=== PATIENT | male | born 2000 | race Hispanic/Latino ===

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

== ENCOUNTER 2019-11-12 12:35 | Emergency (ER) | payer BC, SELFPAY ==
--- NOTE | 2019-11-12 14:29 | EDPHYS ---
Physician Documentation [facility] Name: Red Zuluaga III Age: 19 yrs Sex: Male : 2000 Arrival Date: 11/12/2019 Time: 12:37 Bed 6 Private MD: ED Physician Kenny Boyle HPI: 11/11 13:13 This 19 yrs old Male presents to ER via Ambulatory with complaints of kdr Weakness, Sore Throat. 13:15 The patient has been feeling poorly for the last 24-48 hours and has been spitting up kdr small amount of blood. His throat has been burning when he swallows. He generally does not feel well but other than the sore throat, has no focal c/o. Onset: The symptoms/episode began/occurred gradually, yesterday. Severity of symptoms: At their worst the symptoms were mild moderate just prior to arrival, in the emergency department the symptoms are unchanged. The patient has not experienced similar symptoms in the past. The patient has not recently seen a physician. Historical: - Allergies: 12:55 No Known Allergies; ph - Home Meds: 12:55 None [Active]; ph - PMHx: 12:55 None; ph - PSHx: 12:55 None; ph - Immunization history:: Adult Immunizations unknown. - Social history:: Smoking status: Reported history of juuling and/or vaping. ROS: 13:15 Constitutional: Negative for objective fever, chills, and weight loss, Eyes: Negative kdr for injury, pain, redness, and discharge, Neck: Negative for injury, pain, and swelling, Cardiovascular: Negative for chest pain, palpitations, and edema. 13:15 ENT: Positive for sore throat, Negative for drainage from ear(s), ear pain, foreign body sensation, Gum pain hearing loss, pulling at ears, Teeth pain tinnitus, nasal discharge, dental pain, difficulty handling secretions, hoarseness. 13:15 Abdomen/GI: Positive for Spitting up a small amount blood - denies coughing up blood. Exam: 13:15 Constitutional: This is a well developed, well nourished patient who is awake, alert, kdr and in no acute distress. Head/Face: Normocephalic, atraumatic. Eyes: Pupils equal round and reactive to light, extra-ocular motions intact. Lids and lashes normal. Conjunctiva and sclera are non-icteric and not injected. Cornea within normal limits. Periorbital areas with no swelling, redness, or edema. Neck: Trachea midline, no thyromegaly or masses palpated, and no cervical lymphadenopathy. Supple, full range of motion without nuchal rigidity, or vertebral point tenderness. No Meningismus. Chest/axilla: Normal chest wall appearance and motion. Nontender with no deformity. No lesions are appreciated. Cardiovascular: Regular rate and rhythm with a normal S1 and S2. No gallops, murmurs, or rubs. Normal PMI, no JVD. No pulse deficits. Respiratory: Lungs have equal breath sounds bilaterally, clear to auscultation and percussion. No rales, rhonchi or wheezes noted. No increased work of breathing, no retractions or nasal flaring. Abdomen/GI: Soft, non-tender, with normal bowel sounds. No distension or tympany. No guarding or rebound. No evidence of tenderness throughout. Back: No spinal tenderness. No costovertebral tenderness. Full range of motion. Skin: Warm, dry with normal turgor. Normal color with no rashes, no lesions, and no evidence of cellulitis. MS/ Extremity: Pulses equal, no cyanosis. Neurovascular intact. Full, normal range of motion. Neuro: Awake and alert, GCS 15, oriented to person, place, time, and situation. Cranial nerves II-XII grossly intact. Motor strength 5/5 in all extremities. Sensory grossly intact. Cerebellar exam normal. Normal gait. Psych: Awake, alert, with orientation to person, place and time. Behavior, mood, and affect are within normal limits. 13:15 ENT: Mouth: is normal, Oral mucosa: normal, Gums: normal with healthy appearance, Tongue: is normal, abscess, is not appreciated, drooling, is not appreciated, Posterior pharynx: is normal, no acute changes, Airway: normal, Uvula: normal, swelling, is not appreciated, erythema, that is mild, exudate, is not appreciated, peritonsillar mass, is not appreciated, pooling of secretions, is not appreciated. Vital Signs: 12:51 BP 129 / 97; Pulse 72; Resp 18; Temp 98.5; Pulse Ox 99% on R/A; Weight 74.84 kg; Height ph 5 ft. 6 in. (167.64 cm); 14:27 BP 118 / 82; Pulse 70; Resp 16; Pulse Ox 100% on R/A; ph 14:51 Temp 98.2; ph 12:51 Body Mass Index 26.63 (74.84 kg, 167.64 cm) ph MDM: 13:15 Data reviewed: vital signs, nurses notes. Counseling: I had a detailed discussion with [facility] the patient and/or guardian regarding: the historical points, exam findings, and any diagnostic results supporting the discharge/admit diagnosis, lab results, radiology results. 14:29 Patient medically screened. [facility] 11/11 12:56 Order name: COVID-19 [facility] 11/11 12:56 Order name: Strep [facility] 11/11 12:56 Order name: CXR XRAY [facility] 11/11 14:23 Order name: Group A Streptococcus Rapid Sc; Complete Time: 14:27 [facility] 11/11 14:44 Order name: RAD [facility] Administered Medications: No medications were administered Disposition: 11/12/19 14:29 Discharged to Home. Impression: Acute upper respiratory infection, unspecified, Acute pharyngitis. - Condition is Stable. - Discharge Instructions: Pharyngitis, Upper Respiratory Infection, Adult, COVID-19. - Prescriptions for Ibuprofen 800 mg Oral Tablet - take 1 tablet by ORAL route every 12 hours As needed take with food; 20 tablet. - Medication Reconciliation Form, Thank You Letter, Work release form form. - Follow up: Private Physician; When: 2 - 3 days; Reason: If symptoms return, Further diagnostic work-up, Recheck today's complaints, Continuance of care, Re-evaluation by your physician. - Problem is new. - Symptoms have improved. Signatures: Dispatcher [employer] [facility] Kenny Boyle MD MD [facility] Laly Huynh RN RN ph Corrections: (The following items were deleted from the chart) 14:51 14:29 11/12/2019 14:29 Discharged to Home. Impression: Acute upper respiratory ph infection, unspecified; Acute pharyngitis. Condition is Stable. Forms are Medication Reconciliation Form, Thank You Letter, Antibiotic Education, Prescription Opioid Use. Follow up: Private Physician; When: 2 - 3 days; Reason: If symptoms return, Further diagnostic work-up, Recheck today's complaints, Continuance of care, Re-evaluation by your physician. Problem is new. Symptoms have improved. kdr
--- NOTE | 2019-11-12 14:29 | ER ---
Nurse's Notes [facility] Name: Red Zuluaga III Age: 19 yrs Sex: Male : 2000 Arrival Date: 11/12/2019 Time: 12:37 Bed 6 Private MD: Diagnosis: Acute upper respiratory infection, unspecified;Acute pharyngitis Presentation: 11/11 12:51 Chief complaint: Patient states: Sore throat, cough, fatigue, chills and subjective ph fever x 2-3 days, denies SOB, N/V/D. Coronavirus screen: chills, cough unrelated to allergies, fatigue, sore throat, Client presents with at least one sign or symptom that may indicate coronavirus-19. Standard/surgical mask placed on the client. Provider contacted for isolation considerations. Ebola Screen: No symptoms or risks identified at this time. Initial Sepsis Screen: Does the patient meet any 2 criteria? No. Patient's initial sepsis screen is negative. Does the patient have a suspected source of infection? No. Patient's initial sepsis screen is negative. Risk Assessment: Do you want to hurt yourself or someone else? Patient reports no desire to harm self or others. Onset of symptoms was November 12, 2019. 12:51 Method Of Arrival: Ambulatory ph 12:51 Acuity: JORI 4 ph Historical: - Allergies: 12:55 No Known Allergies; ph - Home Meds: 12:55 None [Active]; ph - PMHx: 12:55 None; ph - PSHx: 12:55 None; ph - Immunization history:: Adult Immunizations unknown. - Social history:: Smoking status: Reported history of juuling and/or vaping. Screenin:57 Abuse screen: Denies threats or abuse. Denies injuries from another. Nutritional ph screening: No deficits noted. Tuberculosis screening: No symptoms or risk factors identified. Fall Risk None identified. Assessment: 12:55 General: Appears in no apparent distress. comfortable, well groomed, Behavior is calm, ph cooperative, appropriate for age, Reports chills for 2-3 days. Pain: Complains of pain in when swallowing. Neuro: Level of Consciousness is awake, alert, obeys commands, Oriented to person, place, time, situation. Cardiovascular: Reports fatigue, Capillary refill < 3 seconds in bilateral fingers Patient's skin is warm and dry. Respiratory: Reports cough that is Airway is patent Respiratory effort is even, unlabored, Respiratory pattern is regular, symmetrical, Denies shortness of breath at rest, on exertion. GI: No signs and/or symptoms were reported involving the gastrointestinal system. EENT: Reports nasal congestion pain when swallowing. Derm: Skin is intact, is healthy with good turgor, Skin is pink, warm \T\ dry. Musculoskeletal: Circulation, motion, and sensation intact. Range of motion: intact in all extremities. 14:26 Reassessment: Patient appears in no apparent distress at this time. Patient and/or ph family updated on plan of care and expected duration. Pain level reassessed. Patient is alert, oriented x 3, equal unlabored respirations, skin warm/dry/pink. Pt resting quietly, awaiting results of CXR. 14:51 Reassessment: Patient appears in no apparent distress at this time. Patient and/or ph family updated on plan of care and expected duration. Pain level reassessed. Patient is alert, oriented x 3, equal unlabored respirations, skin warm/dry/pink. Vital Signs: 12:51 BP 129 / 97; Pulse 72; Resp 18; Temp 98.5; Pulse Ox 99% on R/A; Weight 74.84 kg; Height ph 5 ft. 6 in. (167.64 cm); 14:27 BP 118 / 82; Pulse 70; Resp 16; Pulse Ox 100% on R/A; ph 14:51 Temp 98.2; ph 12:51 Body Mass Index 26.63 (74.84 kg, 167.64 cm) ph ED Course: 12:37 Patient arrived in ED. ds1 12:47 Kenny Boyle MD is Attending Physician. kdr 12:51 Laly Huynh, MARGOTH is Primary Nurse. ph 12:55 Triage completed. ph 12:55 Arm band placed on Patient placed in an exam room. ph 12:57 Patient has correct armband on for positive identification. Bed in low position. Call ph light in reach. Side rails up X 1. 14:51 No provider procedures requiring assistance completed. Patient did not have IV access ph during this emergency room visit. Administered Medications: No medications were administered Outcome: 14:29 Discharge ordered by . kdr 14:51 Discharged to home ambulatory, with family. ph 14:51 Condition: good 14:51 Discharge instructions given to patient, family, Instructed on discharge instructions, follow up and referral plans. Demonstrated understanding of instructions, follow-up care. 14:51 Patient left the ED. ph Signatures: Kenny Boyle MD MD kdr Sanford, Demi ds1 Laly Huynh RN RN ph
--- NOTE | 2019-11-12 14:44 | RAD REPORT ---
EXAM DESCRIPTION: RAD - Chest Single View - 11/12/2019 1:13 pm CLINICAL HISTORY: Cough;Congestion COMPARISON: September 2007 TECHNIQUE: AP portable chest image was obtained 11/12/2019 1:13 pm . FINDINGS: Lungs are clear. Heart and vasculature are normal. No measurable pleural effusion and no p neumothorax. No acute bony abnormality seen. No acute aortic findings suspected. IMPRESSION: No acute cardiopulmonary process. No significant change from comparison.
[2019-11-12 14:58] VITALS: BP 118/82; O2SAT 100
[2019-11-12 14:59] VITALS: TEMP 98.2
== END 2019-11-12 14:51 | disposition home or self-care (01) ==
LOC: ER 12:35
DX: J06.9 Acute upper respiratory infection, unspecified (principal); Z20.828 Contact with and (suspected) exposure to other viral communicable diseases
CPT/HCPCS: 87070; 87081; 71045; 99281; U0002

== ENCOUNTER 2020-05-26 13:14 | Emergency (ER) | payer BC ==
--- NOTE | 2020-05-26 14:41 | RAD REPORT ---
EXAM DESCRIPTION: RAD - Ankle Left 3 View - 05/26/2020 2:04 pm CLINICAL HISTORY: PAIN COMPARISON: No comparisons FINDINGS: No fracture or dislocation is seen.
--- NOTE | 2020-05-26 14:41 | RAD REPORT ---
EXAM DESCRIPTION: RAD - Foot Left 3 View - 05/26/2020 2:04 pm CLINICAL HISTORY: PAIN COMPARISON: No comparisons FINDINGS: No fracture or dislocation is evident.
--- NOTE | 2020-05-26 14:45 | ER ---
Nurse's Notes [facility] Name: Red Zuluaga III Age: 20 yrs Sex: Male : 2000 Arrival Date: 05/26/2020 Time: 13:19 Bed 4 Private MD: Diagnosis: Contusion of left ankle Presentation: 05/26 13:29 Chief complaint: Patient states: left ankle/leg swelling and pain x 1 week. Reports sv having a refrigerator accidently fall on his left ankle area. Coronavirus screen: Client denies travel out of the [place] in the last 14 days. At this time, the client does not indicate any symptoms associated with coronavirus-19. Ebola Screen: No symptoms or risks identified at this time. Risk Assessment: Do you want to hurt yourself or someone else? Patient reports no desire to harm self or others. Onset of symptoms was May 2020. 13:29 Method Of Arrival: Wheelchair sv 13:29 Acuity: JORI 4 sv 13:34 Initial Sepsis Screen: Does the patient meet any 2 criteria? No. Patient's initial hb sepsis screen is negative. Does the patient have a suspected source of infection? No. Patient's initial sepsis screen is negative. Historical: - Allergies: 13:31 No Known Allergies; sv - PMHx: 13:31 None; sv - PSHx: 13:31 None; sv - Immunization history:: Client reports receiving the 1st dose of the Covid vaccine, J\T\J. - Social history:: Smoking status: Patient denies any tobacco usage or history of. - Family history:: not pertinent. - Hospitalizations: : No recent hospitalization is reported. Screenin:33 Abuse screen: Denies threats or abuse. Denies injuries from another. Nutritional ss screening: No deficits noted. Tuberculosis screening: Never had TB. Fall Risk None identified. Assessment: 13:30 General: Appears in no apparent distress. Behavior is calm, cooperative. Pain: Pain hb currently is 8 out of 10 on a pain scale. Neuro: Level of Consciousness is awake, alert, obeys commands, Oriented to person, place, time, situation. Cardiovascular: Patient's skin is warm and dry. Respiratory: Respiratory effort is even, unlabored, Respiratory pattern is regular, symmetrical. GI: No signs and/or symptoms were reported involving the gastrointestinal system. : No signs and/or symptoms were reported regarding the genitourinary system. EENT: No signs and/or symptoms were reported regarding the EENT system. Derm: Skin is pink, warm \T\ dry. Musculoskeletal: Reports left ankle pain. Vital Signs: 13:29 Temp 97.7; Weight 74.39 kg; Height 5 ft. 6 in. (167.64 cm); Pain 8/10; sv 13:38 BP 131 / 94; Pulse 81; Resp 14; Temp 98.6(O); Pulse Ox 98% on R/A; Pain 6/10; ss 13:29 Body Mass Index 26.47 (74.39 kg, 167.64 cm) sv ED Course: 13:19 Patient arrived in ED. mr 13:24 Matt Barajas MD is Attending Physician. rn 13:30 Triage completed. sv 13:31 Arm band placed on. sv 13:33 Abi Cruz RN is Primary Nurse. ss 13:33 Patient has correct armband on for positive identification. Bed in low position. Call ss light in reach. 14:04 XRAY Ankle LEFT 3 view In Process Unspecified. EDMS 14:04 XRAY Foot LEFT 3 View In Process Unspecified. EDMS 15:19 No provider procedures requiring assistance completed. Patient did not have IV access ss during this emergency room visit. Administered Medications: No medications were administered Outcome: 14:44 Discharge ordered by . rn 15:19 Discharged to home ambulatory. ss 15:19 Condition: good 15:19 Discharge instructions given to patient, Instructed on discharge instructions, follow up and referral plans. Demonstrated understanding of instructions, follow-up care. 15:19 Patient left the ED. ss Signatures: Dispatcher [employer] EDMS Dunia Wheeler RN MARGOTH htorpe Kerri Oneal mr Matt Barajas MD MD rn Smirch, Shelby, RN RN ss Baxter, Heather, RN RN
--- NOTE | 2020-05-26 14:45 | EDPHYS ---
Physician Documentation [facility] Name: Red Zuluaga III Age: 20 yrs Sex: Male : 2000 Arrival Date: 05/26/2020 Time: 13:19 Bed 4 Private MD: ED Physician Matt Barajas HPI: 05/26 13:29 This 20 yrs old Male presents to ER via Unassigned with complaints of Leg Pain.rn 13:29 The patient presents with decreased range of motion, an injury, pain. The complaints rn affect the left lateral ankle and anterior aspect of left ankle. Context: resulted from a direct blow, the patient can partially bear weight, the patient is able to ambulate. Onset: The symptoms/episode began/occurred 1 week(s) ago. Modifying factors: The symptoms are alleviated by nothing. the symptoms are aggravated by movement, weight bearing. Associated signs and symptoms: Pertinent positives: swelling, Pertinent negatives fever, numbness, weakness. Severity of symptoms: At their worst the symptoms were moderate, in the emergency department the symptoms have improved. The patient has not experienced similar symptoms in the past. The patient has not recently seen a physician. Reports fridge fell on his left ankle 1 week ago, ambulatory with limp, no other injuries. . Historical: - Allergies: 13:31 No Known Allergies; sv - PMHx: 13:31 None; sv - PSHx: 13:31 None; sv - Immunization history:: Client reports receiving the 1st dose of the Covid vaccine, J\T\J. - Social history:: Smoking status: Patient denies any tobacco usage or history of. - Family history:: not pertinent. - Hospitalizations: : No recent hospitalization is reported. ROS: 13:29 Constitutional: Negative for fever, chills, and weight loss, MS/Extremity: + injury and rn pain to left ankle Neuro: Negative for weakness, numbness, tingling Exam: 13:29 Constitutional: This is a well developed, well nourished patient who is awake, alert, rn and in no acute distress. MS/ Extremity: Pulses equal, no cyanosis. Neurovascular intact. + tenderness left lateral malleolus, + healing abrasions over left ankle/pre-tibial region, no erythema or warmth. + mild swelling and ecchymosis around left lateral malleolus. Vital Signs: 13:29 Temp 97.7; Weight 74.39 kg; Height 5 ft. 6 in. (167.64 cm); Pain 8/10; sv 13:38 BP 131 / 94; Pulse 81; Resp 14; Temp 98.6(O); Pulse Ox 98% on R/A; Pain 6/10; ss 13:29 Body Mass Index 26.47 (74.39 kg, 167.64 cm) sv MDM: 13:24 Patient medically screened. rn 14:43 Differential diagnosis: closed fracture, contusion. Data reviewed: vital signs, nurses rn notes, radiologic studies, plain films, and as a result, I will discharge patient. Counseling: I had a detailed discussion with the patient and/or guardian regarding: the historical points, exam findings, and any diagnostic results supporting the discharge/admit diagnosis, radiology results, the need for outpatient follow up, to return to the emergency department if symptoms worsen or persist or if there are any questions or concerns that arise at home. Special discussion: I discussed with the patient/guardian in detail that at this point there is no indication for admission to the hospital. It is understood, however, that if the symptoms persist or worsen the patient needs to return immediately for re-evaluation. 05/26 13:29 Order name: XRAY Ankle LEFT 3 view; Complete Time: 14:43 rn 05/26 13:29 Order name: XRAY Foot LEFT 3 View; Complete Time: 14:43 rn Administered Medications: No medications were administered Disposition: 05/26/20 14:44 Discharged to Home. Impression: Contusion of left ankle. - Condition is Stable. - Discharge Instructions: Ankle Sprain. - Work release form, Medication Reconciliation Form, Thank You Letter, Antibiotic Education, Prescription Opioid Use form. - Follow up: Private Physician; When: As needed; Reason: Recheck today's complaints, Re-evaluation by your physician. - Problem is new. - Symptoms have improved. Signatures: Dispatcher [employer] Dunia Gonzales RN Matt Zimmerman MD MD rn Smirch, Shelby, RN RN ss Corrections: (The following items were deleted from the chart) 15:19 14:44 05/26/2020 14:44 Discharged to Home. Impression: Contusion of left ankle. ss Condition is Stable. Forms are Medication Reconciliation Form, Thank You Letter, Antibiotic Education, Prescription Opioid Use. Follow up: Private Physician; When: As needed; Reason: Recheck today's complaints, Re-evaluation by your physician. Problem is new. Symptoms have improved. rn
== END 2020-05-26 15:19 | disposition home or self-care (01) ==
LOC: ER 13:14
DX: S90.02XA Contusion of left ankle, initial encounter (principal); W22.8XXA Striking against or struck by other objects, initial encounter; Y93.89 Activity, other specified; Y92.9 Unspecified place or not applicable
CPT/HCPCS: 99283

== ENCOUNTER 2020-06-05 18:13 | Emergency (ER) | payer SELFPAY ==
--- NOTE | 2020-06-05 20:29 | ER ---
Nurse's Notes [facility] Name: Red Zuluaga III Age: 20 yrs Sex: Male : 2000 Arrival Date: 06/05/2020 Time: 18:24 Bed Waiting Private MD: Diagnosis: Presentation: 06/05 18:27 Chief complaint: Patient states: N/V , fever, chills, body aches for 1 day. Coronavirus ll1 screen: Client denies travel out of the [place] in the last 14 days. chills, fatigue, headache, muscle pain, nausea, shaking with chills, vomiting. Client presents with at least one sign or symptom that may indicate coronavirus-19. Standard/surgical mask placed on the client. Ebola Screen: Patient denies travel to an Ebola-affected area in the 21 days before illness onset. Initial Sepsis Screen: Does the patient meet any 2 criteria? HR > 90 bpm. No. Patient's initial sepsis screen is negative. Does the patient have a suspected source of infection? Yes: Other: N/V. Risk Assessment: Do you want to hurt yourself or someone else? Patient reports no desire to harm self or others. Onset of symptoms was June 05, 2020. 18:27 Method Of Arrival: Ambulatory ll1 18:27 Acuity: JORI 3 ll1 Historical: - Allergies: 18:28 No Known Allergies; ll1 - PMHx: 18:28 None; ll1 - Immunization history:: Flu vaccine is not up to date. - Social history:: Smoking status: Patient denies any tobacco usage or history of. Assessment: 20:00 Reassessment: called no answer. ca1 Vital Signs: 18:27 BP 130 / 82; Pulse 100; Resp 18; Temp 99.9; Pulse Ox 98% ; Weight 66.22 kg; Height 5 ll1 ft. 6 in. (167.64 cm); Pain 8/10; 18:27 Body Mass Index 23.56 (66.22 kg, 167.64 cm) ll1 ED Course: 18:24 Patient arrived in ED. as 18:28 Triage completed. ll1 18:28 Arm band placed on. ll1 20:27 Patient's name was called from ER lobby. No response. Unable to locate patient. Will ca1 disposition as left without being seen by a provider. Administered Medications: No medications were administered Outcome: 20:28 Patient left the ED. ca1 Signatures: Reyna Hensley Cheryl RN RN ca1 Matt Garcia RN RN ll1
[2020-06-05 20:34] VITALS: BP 130/82; TEMP 99.9; O2SAT 98
== END 2020-06-05 20:28 | disposition left against medical advice (07) ==
LOC: ER 18:13
DX: Z02.9 Encounter for administrative examinations, unspecified (principal)
CPT/HCPCS: 99281

== ENCOUNTER 2021-02-16 20:53 | Emergency (ER) | payer BC ==
[2021-02-16 23:54] LABS: SARS-COV-2 RT PCR POSITIVE (NEGATIVE)
--- NOTE | 2021-02-17 00:34 | ER ---
Nurse's Notes [facility] Name: Red Zuluaga III Age: 21 yrs Sex: Male : 2000 Arrival Date: 02/16/2021 Time: 20:58 Bed 9 Private MD: Diagnosis: SARS-associated coronavirus as the cause of diseases classified elsewhere Presentation: 02/17 00:10 Chief complaint: Patient states: he has had Covid like symptoms for about 10 days and bb he is getting tired of them. Coronavirus screen: diarrhea, Client presents with at least one sign or symptom that may indicate coronavirus-19. Standard/surgical mask placed on the client. Ebola Screen: No symptoms or risks identified at this time. Initial Sepsis Screen: Does the patient meet any 2 criteria? No. Patient's initial sepsis screen is negative. Does the patient have a suspected source of infection? No. Patient's initial sepsis screen is negative. Risk Assessment: Do you want to hurt yourself or someone else? Patient reports no desire to harm self or others. Onset of symptoms was February 07, 2021. 00:10 Method Of Arrival: Ambulatory bb 00:10 Acuity: JORI 4 bb Triage Assessment: 00:10 General: Appears in no apparent distress. Behavior is calm, cooperative. Pain: Denies bb pain. Neuro: Level of Consciousness is awake, alert, obeys commands, Oriented to person, place, time, situation. Cardiovascular: Capillary refill < 3 seconds Patient's skin is warm and dry. Respiratory: Respiratory effort is even, unlabored, Respiratory pattern is regular. GI: No signs and/or symptoms were reported involving the gastrointestinal system. Derm: Skin is pink, warm \\T\\ dry. Musculoskeletal: Circulation, motion, and sensation intact. Historical: - Allergies: 01:40 No Known Allergies; bb - Home Meds: 01:40 None [Active]; bb - PMHx: 01:40 None; bb - Immunization history:: Client reports having NOT received the Covid vaccine. - Social history:: Smoking status: unknown. Screenin: Abuse screen: Denies threats or abuse. Nutritional screening: No deficits noted. bb Tuberculosis screening: No symptoms or risk factors identified. Fall Risk None identified. Assessment: :41 Reassessment: No changes from previously documented assessment. Patient is alert, bb oriented x 3, equal unlabored respirations, skin warm/dry/pink. pt verbalized understanding of and agrees to plan of care discharge instructions given pt ambulated with steady gait to exit accompanied by friend. Vital Signs: 02/16 22:41 BP 132 / 96; Pulse 73; Resp 16; Temp 98.4; Pulse Ox 100% ; lt3 02/17 00:42 BP 133 / 87; Pulse 67; Resp 16; Temp 98.0(O); Pulse Ox 98% ; lt3 ED Course: 02/16 20:58 Patient arrived in ED. kc5 22:44 COVID swab sent to lab. Flu and/or RSV swab sent to lab. Strep swab sent to lab. lt3 22:45 Strep Sent. lt3 22:45 COVID-19/FLU A+B/RSV (Document "Date of Onset" if Symptomatic) Sent. lt3 02/17 00:10 Arm band placed on Patient placed in an exam room, on a stretcher, on pulse oximetry. bb Family accompanied patient. 00:23 Avtar Ford PA is PHCP. jrSlade 00:23 Bandar Severino MD is Attending Physician. jr8 01:38 Shanthi Thornton, MARGOTH is Primary Nurse. bb 01:39 Triage completed. bb 01:41 No provider procedures requiring assistance completed. Patient did not have IV access bb during this emergency room visit. 01:41 Patient has correct armband on for positive identification. bb Administered Medications: No medications were administered Outcome: 00:34 Discharge ordered by MD. jr8 01:41 Discharged to home ambulatory, with family. bb 01:41 Condition: stable 01:41 Discharge instructions given to patient, Instructed on discharge instructions, follow up and referral plans. Demonstrated understanding of instructions, follow-up care. 01:43 Patient left the ED. bb Signatures: Shanthi Thornton RN RN Avtar La PA PA jr8 Samanta Franco kc5 Aleja Ruiz lt3 Corrections: (The following items were deleted from the chart) 01:40 01:40 PSHx: None; bb toya
--- NOTE | 2021-02-17 00:35 | EDPHYS ---
Physician Documentation [facility] Name: Red Zuluaga III Age: 21 yrs Sex: Male : 2000 Arrival Date: 02/16/2021 Time: 20:58 Bed 9 Private MD: ED Physician Bandar Severino HPI: 02/17 00:32 This 21 yrs old Male presents to ER via Unassigned with complaints of jr8 Headache, Pain All Over, Nausea. 00:32 This is a 21-year-old male patient who presented to the emergency room with complaints jr8 of continued headache, body aches, nausea, and fatigue for the past week and half. Was unable to get a test for Covid at any of the local pharmacies. Came to the emergency room tonight for formal testing as he is not significantly improved over the last week and a half.. Historical: - Allergies: 01:40 No Known Allergies; bb - Home Meds: 01:40 None [Active]; bb - PMHx: 01:40 None; bb - Immunization history:: Client reports having NOT received the Covid vaccine. - Social history:: Smoking status: unknown. ROS: 00:32 Eyes: Negative for injury, pain, redness, and discharge, ENT: Negative for injury, jr8 pain, and discharge, Neck: Negative for injury, pain, and swelling, Cardiovascular: Negative for chest pain, palpitations, and edema, Respiratory: Negative for shortness of breath, cough, wheezing, and pleuritic chest pain, Back: Negative for injury and pain, MS/Extremity: Negative for injury and deformity, Skin: Negative for injury, rash, and discoloration. 00:32 Constitutional: Positive for body aches, fatigue, malaise. 00:32 Abdomen/GI: Positive for nausea, Negative for abdominal pain, vomiting, diarrhea. 00:32 Neuro: Positive for headache. Exam: 00:32 Constitutional: This is a well developed, well nourished patient who is awake, alert, jr8 and in no acute distress. Eyes: Pupils equal round and reactive to light, extra-ocular motions intact. Lids and lashes normal. Conjunctiva and sclera are non-icteric and not injected. Cornea within normal limits. Periorbital areas with no swelling, redness, or edema. ENT: Nares patent. No nasal discharge, no septal abnormalities noted. Tympanic membranes are normal and external auditory canals are clear. Oropharynx with no redness, swelling, or masses, exudates, or evidence of obstruction, uvula midline. Mucous membranes moist. Neck: Trachea midline, no thyromegaly or masses palpated, and no cervical lymphadenopathy. Supple, full range of motion without nuchal rigidity, or vertebral point tenderness. No Meningismus. Cardiovascular: Regular rate and rhythm with a normal S1 and S2. No gallops, murmurs, or rubs. Normal PMI, no JVD. No pulse deficits. Respiratory: Lungs have equal breath sounds bilaterally, clear to auscultation and percussion. No rales, rhonchi or wheezes noted. No increased work of breathing, no retractions or nasal flaring. Abdomen/GI: Soft, non-tender, with normal bowel sounds. No distension or tympany. No guarding or rebound. No evidence of tenderness throughout. Back: No spinal tenderness. No costovertebral tenderness. Full range of motion. Skin: Warm, dry with normal turgor. Normal color with no rashes, no lesions, and no evidence of cellulitis. MS/ Extremity: Pulses equal, no cyanosis. Neurovascular intact. Full, normal range of motion. Neuro: Awake and alert, GCS 15, oriented to person, place, time, and situation. Cranial nerves II-XII grossly intact. Motor strength 5/5 in all extremities. Sensory grossly intact. Vital Signs: 02/16 22:41 BP 132 / 96; Pulse 73; Resp 16; Temp 98.4; Pulse Ox 100% ; lt3 02/17 00:42 BP 133 / 87; Pulse 67; Resp 16; Temp 98.0(O); Pulse Ox 98% ; lt3 MDM: 00:23 Patient medically screened. jr8 00:32 Data reviewed: vital signs, nurses notes, lab test result(s), and as a result, I will jr discharge patient. Data interpreted: Pulse oximetry: on room air is 100 %. Interpretation: normal. Counseling: I had a detailed discussion with the patient and/or guardian regarding: the historical points, exam findings, and any diagnostic results supporting the discharge/admit diagnosis, lab results, the need for outpatient follow up, a family practitioner, to return to the emergency department if symptoms worsen or persist or if there are any questions or concerns that arise at home. 02/16 22:37 Order name: COVID-19/FLU A+B/RSV (Document "Date of Onset" if Symptomatic); Complete jr8 Time: 00:23 02/16 22:37 Order name: Strep; Complete Time: 00:23 jr8 02/16 23:13 Order name: Throat Culture EDMS Administered Medications: No medications were administered Disposition: 04:05 Co-signature as Attending Physician, Bandar Severino MD. 7 Disposition Summary: 02/17/21 00:34 Discharge Ordered Location: Home jr8 Problem: new jr8 Symptoms: are unchanged jr8 Condition: Stable jr8 Diagnosis - SARS-associated coronavirus as the cause of diseases classified elsewhere jr8 Followup: jr8 - With: Private Physician - When: 1 week - Reason: Recheck today's complaints, Continuance of care, Re-evaluation by your physician Discharge Instructions: - Discharge Summary Sheet jr8 - COVID-19 jr8 - 10 Things You Can Do to Manage Your COVID-19 Symptoms at Home - [facility] Forms: - Medication Reconciliation Form jr8 - Thank You Letter jr8 - Work release form jr8 - Antibiotic Education jr8 - Prescription Opioid Use jr8 Signatures: Dispatcher [employer] EDMS Shanthi Thornton RN RN bb Avtar Ford PA PA 8 Bandar Severino MD MD mh7 Corrections: (The following items were deleted from the chart) 01:40 01:40 PSHx: None; toya pittman
[2021-02-17 01:50] VITALS: BP 133/87; TEMP 98; O2SAT 98
== END 2021-02-17 01:43 | disposition home or self-care (01) ==
LOC: ER 20:53
DX: U07.1 COVID-19 (principal)
CPT/HCPCS: 87070; 87081; 0241U; 99283

== ENCOUNTER 2022-01-05 20:12 | Emergency (ER) | payer BC ==
--- OUTSIDE RECORDS SUMMARY | 2022-01-05 20:15 | XMS REPORT | Continuity of Care Document ---
:2000 Author Organization [facility] t Address [address] [place] [address] Care Team Providers Name Role Phone Unavailable Unavailable Unavailable Problems This patient has no known problems. Allergies, Adverse Reactions, Alerts This patient has no known allergies or adverse reactions. Medications This patient has no known medications. Procedures This patient has no known procedures. Results Test Description Test Time Test Comments Results Result Comments Source SARS-CoV-2 (COVID-19), RT-PCR/TMA 2021-02-25 09:36:57 Test Item Value Reference Range Interpretation Comme nts SARS-CoV-2 INTERPRETATION NEGATIVE SEE NOTE S ARS-CoV-2 RNA NOT (test code = 43928) DETECTED Negative results do not preclude SARS-C oV-2 infection and should notb e used as the sole basis for patient management deci sions. Negativeresults must be combined with clinical o bservations, patient history ,and epidemiological information. Optimum specime n types and timingfor peak viral levels during infectio ns caused by SARS-CoV-2 have notbeen determined. Col lection of multiple specim ens or types ofspecimens may be necessary to detect virus. I mproper specimencollect ion and handling, sequence variab ility under primers/probes, or organism present below t he limit of detection may l ead to falsenegative r esults. Positive and negative pr edictive values oftesting are h ighly dependent on prevalence. False negative testresults are more likely when prevalence is h igh. SOURCE (test code = 44010) NOT SPECIFIED Note: Methodology is Ilana Reagan Real-Time RT-PCR. The expected result or reference range is NEGATI VE (Not Detected). For more information regarding COVID -19 testing to include clinica linformation, methodology det ail, intended use, FDA author ization andrecommended fact sheets for patients or hea lthcare providers, see [facility] Announcement: S ARS-CoV-2 (COVID-19) by Lisa HUNT at URL below (note,fact shee ts are provided by method given in report:https:// www.[employer]c [email or web address] t-communications/ Alternatively, see downloadable PDF fact sheet at:https://www. [employer]COVID -19-RT-PCR UNLE SS OTHERWISE INDICATED, ALL TESTING PERFORMED ATCLINICAL PATH [facility]. [address] [place] [address] 4 [employer] STRIPPER: Javier ROJAS [id number] [employer]ATION N O. [id number]
[2022-01-05] MEDS ORDERED: DIPHENHYDRAMINE 25 MG TAB/CAP ONE (20:48)
[2022-01-05] MEDS ORDERED: predniSONE 20 MG TAB ONE (20:49)
[2022-01-05] MEDS ORDERED: FAMOTIDINE 20 MG TAB ONE (20:49)
--- NOTE | 2022-01-05 21:43 | EDPHYS ---
Physician Documentation [facility] Name: Red Zuluaga III Age: 21 yrs Sex: Male : 2000 Arrival Date: 01/05/2022 Time: 20:15 Bed 8 Private MD: ED Physician Arias Mora HPI: 01/05 21:37 This 21 yrs old Male presents to ER via Ambulatory with complaints of Rash. [facility] 21:37 The patient's rash thought to be caused by Contact allergy. The rash is located on the [facility] chest, abdomen, right arm and left arm. The rash can be described as erythematous, macular, patchy, raised. Onset: The symptoms/episode began/occurred 3 day(s) ago. Associated signs and symptoms: Pertinent positives: burning sensation, itching. Severity of symptoms: At their worst the symptoms were mild in the emergency department the symptoms are unchanged. Treatment given at home: OTC lotion/cream. The patient has not experienced similar symptoms in the past. Historical: - Allergies: 20:36 No Known Allergies; jh5 - PMHx: 20:36 None; [facility] - Immunization history:: Adult Immunizations up to date. - Social history:: Smoking status: Patient reports the use of cigarette tobacco products, smokes one pack cigarettes per day. - Family history:: not pertinent. ROS: 21:37 Constitutional: Negative for fever, chills, and weight loss, Eyes: Negative for injury, niraj pain, redness, and discharge, ENT: Negative for injury, pain, and discharge, Neck: Negative for injury, pain, and swelling, Cardiovascular: Negative for chest pain, palpitations, and edema, Respiratory: Negative for shortness of breath, cough, wheezing, and pleuritic chest pain, Back: Negative for injury and pain, : Negative for injury, bleeding, discharge, and swelling, MS/Extremity: Negative for injury and deformity, Neuro: Negative for headache, weakness, numbness, tingling, and seizure, Psych: Negative for depression, anxiety, suicide ideation, homicidal ideation, and hallucinations, Allergy/Immunology: Negative for hives, rash, and allergies, Endocrine: Negative for neck swelling, polydipsia, polyuria, polyphagia, and marked weight changes, Hematologic/Lymphatic: Negative for swollen nodes, abnormal bleeding, and unusual bruising. 21:37 Abdomen/GI: Negative for abdominal pain, nausea, vomiting, diarrhea, and constipation. 21:37 Abdomen/GI: 21:37 Skin: Positive for erythema, lesions, rash, diffusely. Exam: 21:37 Constitutional: This is a well developed, well nourished patient who is awake, alert, niraj and in no acute distress. Head/Face: Normocephalic, atraumatic. Eyes: Pupils equal round and reactive to light, extra-ocular motions intact. Lids and lashes normal. Conjunctiva and sclera are non-icteric and not injected. Cornea within normal limits. Periorbital areas with no swelling, redness, or edema. ENT: Nares patent. No nasal discharge, no septal abnormalities noted. Tympanic membranes are normal and external auditory canals are clear. Oropharynx with no redness, swelling, or masses, exudates, or evidence of obstruction, uvula midline. Mucous membranes moist. Neck: Trachea midline, no thyromegaly or masses palpated, and no cervical lymphadenopathy. Supple, full range of motion without nuchal rigidity, or vertebral point tenderness. No Meningismus. Chest/axilla: Normal chest wall appearance and motion. Nontender with no deformity. No lesions are appreciated. Cardiovascular: Regular rate and rhythm with a normal S1 and S2. No gallops, murmurs, or rubs. Normal PMI, no JVD. No pulse deficits. Respiratory: Lungs have equal breath sounds bilaterally, clear to auscultation and percussion. No rales, rhonchi or wheezes noted. No increased work of breathing, no retractions or nasal flaring. Abdomen/GI: Soft, non-tender, with normal bowel sounds. No distension or tympany. No guarding or rebound. No evidence of tenderness throughout. Back: No spinal tenderness. No costovertebral tenderness. Full range of motion. Male : Normal genitalia with no discharge or lesions. MS/ Extremity: Pulses equal, no cyanosis. Neurovascular intact. Full, normal range of motion. Neuro: Awake and alert, GCS 15, oriented to person, place, time, and situation. Cranial nerves II-XII grossly intact. Motor strength 5/5 in all extremities. Sensory grossly intact. Cerebellar exam normal. Normal gait. Psych: Awake, alert, with orientation to person, place and time. Behavior, mood, and affect are within normal limits. 21:37 Skin: contact dermatitis, and is diffusely located. Vital Signs: 20:34 BP 122 / 67; Pulse 68; Resp 16; Temp 98.8; Pulse Ox 98% ; Weight 74.84 kg; Height 5 ft. jh5 7 in. (170.18 cm); Pain 0/10; 20:34 Body Mass Index 25.84 (74.84 kg, 170.18 cm) 5 MDM: 20:27 Patient medically screened. [facility] 21:41 Differential diagnosis: impetigo, allergic reaction. Data reviewed: vital signs, nurses niraj notes. Data interpreted: pvc monitor: rate is 68 beats/min, rhythm is regular, Pulse oximetry: on room air is 98 %. Test interpretation: by ED physician or midlevel provider:. Counseling: I had a detailed discussion with the patient and/or guardian regarding: the historical points, exam findings, and any diagnostic results supporting the discharge/admit diagnosis, the need for outpatient follow up. Administered Medications: 20:48 Drug: predniSONE 60 mg Route: PO; [facility] 21:52 Follow up: Response: No adverse reaction as6 20:48 Drug: Benadryl (diphenhydrAMINE) 50 mg Route: PO; 5 21:52 Follow up: Response: No adverse reaction as6 20:48 Drug: Pepcid (famotidine) 40 mg Route: PO; 5 21:52 Follow up: Response: No adverse reaction as6 Disposition Summary: 01/05/22 21:43 Discharge Ordered Location: Home [facility] Problem: new [facility] Symptoms: have improved niraj Condition: Stable niraj Diagnosis - Allergic contact dermatitis, unspecified cause - poison lashanda niraj Followup: niraj - With: Private Physician - When: 2 - 3 days - Reason: Recheck today's complaints, Continuance of care, Re-evaluation by your physician Discharge Instructions: - Discharge Summary Sheet niraj - Contact Dermatitis niraj - Poison Lashanda Dermatitis niraj - Poison [place] Dermatitis niraj - Rash, Adult, [id number] [facility] Forms: - Medication Reconciliation Form niraj - Thank You Letter niraj - Antibiotic Education niraj - Prescription Opioid Use niraj - Work release form as6 Prescriptions: - Benadryl 25 mg Oral Capsule - take 2 capsule by ORAL route every 6 hours As needed; 45 tablet; Refills: 0, niraj Product Selection Permitted - Pepcid 20 mg Oral Tablet - take 1 tablet by ORAL route every 12 hours for 21 days; 42 tablet; Refills: 0, niraj Product Selection Permitted - Prednisone 20 mg Oral Tablet - take 3 tablets by ORAL route once daily for 4 days; 12 tablet; Refills: 0, niraj Product Selection Permitted Signatures: Arias Mora, Diana Hammond MD, cha, RN RN jh5 Bill Esteban RN as6
--- NOTE | 2022-01-05 21:43 | ER ---
Nurse's Notes [facility] Name: Red Zuluaga III Age: 21 yrs Sex: Male : 2000 Arrival Date: 01/05/2022 Time: 20:15 Bed 8 Private MD: Diagnosis: Allergic contact dermatitis, unspecified cause-poison edwardo Presentation: 01/05 20:34 Chief complaint: Patient states: last Wednesday i was in poison edward[place] and i was putting jh5 ointment on it but it's not going away and starting to spread; both forearms and trunk. Coronavirus screen: Vaccine status: Patient reports being unvaccinated. Client denies travel out of the [place] in the last 14 days. Ebola Screen: Patient negative for fever greater than or equal to 101.5 degrees Fahrenheit, and additional compatible Ebola Virus Disease symptoms Patient denies exposure to infectious person. Patient denies travel to an Ebola-affected area in the 21 days before illness onset. Initial Sepsis Screen: Does the patient meet any 2 criteria? No. Patient's initial sepsis screen is negative. Does the patient have a suspected source of infection? No. Patient's initial sepsis screen is negative. Risk Assessment: Do you want to hurt yourself or someone else? Patient reports no desire to harm self or others. 20:34 Method Of Arrival: Ambulatory [facility] 20:34 Acuity: JORI 4 jh5 21:53 Onset of symptoms was January 03, 2022. as6 Triage Assessment: 20:36 General: Appears in no apparent distress. uncomfortable, slender, well groomed, well jh5 developed, well nourished, Behavior is calm, cooperative, appropriate for age. Pain: Denies pain. Historical: - Allergies: 20:36 No Known Allergies; jh5 - PMHx: 20:36 None; jh5 - Immunization history:: Adult Immunizations up to date. - Social history:: Smoking status: Patient reports the use of cigarette tobacco products, smokes one pack cigarettes per day. - Family history:: not pertinent. Screenin:52 Abuse screen: Denies threats or abuse. Denies injuries from another. Nutritional as6 screening: No deficits noted. Tuberculosis screening: No symptoms or risk factors identified. Fall Risk None identified. Vital Signs: 20:34 BP 122 / 67; Pulse 68; Resp 16; Temp 98.8; Pulse Ox 98% ; Weight 74.84 kg; Height 5 ft. 5 7 in. (170.18 cm); Pain 0/10; 20:34 Body Mass Index 25.84 (74.84 kg, 170.18 cm) [facility] ED Course: 20:15 Patient arrived in ED. jj6 20:27 Arias Mora MD is Attending Physician. [facility] 20:36 Triage completed. [facility] 20:36 Arm band placed on right wrist. [facility] 21:46 Bill Etseban, RN is Primary Nurse. as6 21:52 No provider procedures requiring assistance completed. Patient did not have IV access as6 during this emergency room visit. 21:53 Bed in low position. Call light in reach. as6 Administered Medications: 20:48 Drug: predniSONE 60 mg Route: PO; [facility] 21:52 Follow up: Response: No adverse reaction as6 20:48 Drug: Benadryl (diphenhydrAMINE) 50 mg Route: PO; [facility] 21:52 Follow up: Response: No adverse reaction as6 20:48 Drug: Pepcid (famotidine) 40 mg Route: PO; [facility] 21:52 Follow up: Response: No adverse reaction as6 Medication: 21:53 VIS not applicable for this client. as6 Outcome: 21:43 Discharge ordered by . [facility] 21:53 Discharged to home ambulatory. as6 21:53 Condition: stable 21:53 Discharge instructions given to patient, Instructed on discharge instructions, follow up and referral plans. medication usage, Demonstrated understanding of instructions, follow-up care, medications, Prescriptions given X 2. 21:53 Patient left the ED. as6 Signatures: Arias Mora MD MD cha Jeffries, Jennifer j6 Diana Draper, RN RN 5 Bill Esteban, MARGOTH RN as6
[2022-01-05 22:31] VITALS: BP 122/67; TEMP 98.8; O2SAT 98
== END 2022-01-05 21:53 | disposition home or self-care (01) ==
LOC: ER 20:12
DX: L23.7 Allergic contact dermatitis due to plants, except food (principal); F17.210 Nicotine dependence, cigarettes, uncomplicated
CPT/HCPCS: 99283; J7512

== ENCOUNTER 2024-05-08 09:44 | Emergency (ER) | payer BC ==
--- OUTSIDE RECORDS SUMMARY | 2024-05-08 09:48 | XMS REPORT | Continuity of Care Document ---
Author Name Unknown Address [address] [facility] [address] [place] [address] Organization [facility] [place] Address [address] [facility]. [address] [place] [address] Care Team Providers Care Lathe Sander Name Role Phone Pcp, Patient Does Not Have A Primary Care Physic sandy Campaigns, Generic Provider Attending Clinician Unavailable ALONSO SANCHEZ Attending Clinician Unavailable ALONSO SANCHEZ Attending Clinician Unavailable Alonso Sanchez NP Attending Clinician [phone] Payers Payer Name Policy Type Policy Number Effective Date Expirati on Date Source Allergies, Adverse Reactions, Alerts Allergy Name Allergy Type Status Severity Reaction(s) Onset Date Inactive Date Treating Clinician Comments Source NO KNOWN ALLERGIE S Drug Class Active [facility] Social History Social Habit Start Date Stop Date Quantity Comments Source Sexual orientation [facility] Sex assigned at 2000 00:00:00 2000 00:00:00 [facility] Smoking Status Start Date Stop Date Source Tobacco smoking consumption unknown [facility] Medications Ordered Medication Name Filled Medication Name Start Date Stop Date Current Medication? Ordering Clinician Indication Dosage Frequency Signature (SIG) Comments Components Source tranexamic acid (CYKLOKAPRO N) topical 1 Vial 2023-02 08:15: 00 12-28 08:15 :00 No 1{vial} 1 Vial, Topical, ONCE, 1 dose, On Wed12/29/23 at 0215, Routine, Indication for use: Post-ENT procedure (dental extraction , adenoidect davey, tonsillect davey) [facility] Vital Signs Vital Name Observation Time Observation Value Comments S vitaly Systolic blood pressure 2023-12-29 10:00:00 121 mm[Hg] [facility] Diastolic blood pressure 2023-12-29 10:00:00 72 mm[Hg] [facility] Heart rate 2023-12-29 10:00:00 77 /min [facility] Body temperature 2023-12-29 10:00:00 36.61 Ignacia [facility] Respiratory rate 2023-12-29 10:00:00 18 /min [facility] Oxygen saturation in Arterial blood by Pulse oximetry 2023-12-29 10:00:00 98 /min [facility] Body height 2023-12-29 05:45:00 167.6 cm [facility] Body weight 2023-12-29 05:45:00 79.379 kg [facility] BMI 2023-12-29 05:45:00 28.25 kg/m2 [facility] Procedures Procedure Date / Time Performed Performing Clinician Source COMP. METABOLIC PANEL (47321) 2023-12-29 07:49:00 Alonso Sanchez [facility] CBC WITH DIFF 2023-12-29 07:49:00 Alonso Sanchez [facility] PROTHROMBIN TIME / INR 2023-12-29 07:49:00 Lee Ann Sanchez ala [facility] Encounters Start Date/Time End Date/Time Encounter Type Admission Type Attending Clinicians Care Facility Care Department Encounter ID Source 2024-01-05 00:00:00 2024-01-05 10:23:01 Letter (Out) Campaigns, Generic Provider Campaigns, Generic Provider [facility] [id number] [facility] 2023-12-28 23:47:00 2023-12-29 04:14:00 Emergency X ALONSO SANCHEZ PAMALA [facility] ERT [id number] [facility] 2023-12-28 23:47:00 2023-12-29 04:14:00 Emergency Alonso Sanchez G [facility] AT [facility] [id number] [facility] Results Test Description Test Time Test Comments Results Result Co [facility] (80977)2023-12-29 08:13:19* Test Item Value Reference Range Interpretation Comme nts NA (test code = 3961976212) 141 mmol/L 135-145 K (test code = 7989753102) 3.7 mmol/L 3.5-5.0 CL (test code = 7512359360) 105 mmol/L 98-108 CO2 TOTAL (test code = 1047379343) 28 mmol/L 23-31 AGAP (test code = 3543706088) 8 2-16 BUN (test code = 0954390282) 18 mg/dL 7-23 GLUCOSE (test code = 6908463658) 92 mg/dL 70-110 CREATININE (test code = 2160-0) 0.99 mg/dL 0.60-1.25 TOTAL BILI (test code = 6837969760) 0.4 mg/dL 0.1-1.1 CALCIUM (test code = 0496880773) 9.4 mg/dL 8.6-10.6 T PROTEIN (test code = 8927639475) 7.7 g/dL 6.3-8.2 ALBUMIN (test code = 4456427603) 4.7 g/dL 3.5-5.0 ALK PHOS (test code = 7473334045) 75 U/L 34-122 ALTv (test code = 1742-6) 38 U/L 5-50 AST(SGOT) (test code = 1488821954) 108 U/L 13-40 H eGFR (test code = 63429-7) 109.1 mL/min/1.73m2 CKD-EPI eGFR (2020). Assuming creatinine has been stable day-to-day for at least three months, the eGFR indicates Category G1 (>= 90 mL/min/1.73 m2) Lab Interpretation (test code = 80457-8) Abnormal [facility] with [id number] 08:03:39* Test Item Value Reference Range Interpretation Comme nts WBC (test code = 6690-2) 10.31 4.20-10.70 RBC (test code = 789-8) 4.98 4.26-5.52 HGB (test code = 718-7) 14.7 g/dL 12.2-16.4 HCT (test code = 4544-3) 44.2 % 38.4-49.3 MCV (test code = 787-2) 88.8 fL 81.7-95.6 MCH (test code = 785-6) 29.5 pg 26.1-32.7 MCHC (test code = 786-4) 33.3 g/dL 31.2-35.0 RDW-SD (test code = 35537-6) 39.5 fL 38.5-51.6 RDW-CV (test code = 788-0) 12.2 % 12.1-15.4 PLT (test code = 777-3) 290 150-328 MPV (test code = 86070-8) 10.3 fL 9.8-13.0 NRBC/100 WBC (test code = 4984429697) 0.0 0.0-10.0 NRBC x10^3 (test code = 2018252310) See_Comment [Automated me ssage] The system which generated this result transmitted reference range: 10*3/?L. The reference range was not used to interpret this result as normal/abnormal. GRAN MAT (NEUT) % (test code = 770-8) 59.3 % IMM GRAN % (test code = 2710560050) 0.40 % LYMPH % (test code = 736-9) 29.9 % MONO % (test code = 5905-5) 8.2 % EOS % (test code = 713-8) 1.9 % BASO % (test code = 706-2) 0.3 % GRAN MAT x10^3(ANC) (test code = 7208667034) 6.11 10*3/uL 1.99-6.95 IMM GRAN x10^3 (test code = 4817233126) 0.04 10*3/uL 0.00-0.06 LYMPH x10^3 (test code = 731-0) 3.08 10*3/uL 1.09-3.23 MONO x10^3 (test code = 742-7) 0.85 10*3/uL 0.36-1.02 EOS x10^3 (test code = 711-2) 0.20 10*3/uL 0.06-0.53 BASO x10^3 (test code = 704-7) 0.03 10*3/uL 0.01-0.09 [facility]/[id number] 09:36:57* Test Item Value Reference Range Interpretation Comments SARS-CoV-2 INTERPRETATION (test code = 72778) NEGATIVE SEE NOTE SARS-CoV-2 R NA NOT DETECTEDNegative results do not preclude SARS-CoV-2 infection and should notbe used as the sole basis for patient management decisions. Negativeresults must be combined with clinical observations, patient history,and epidemiological information. Optimum specimen types and timingfor peak viral levels during infections caused by SARS-CoV-2 have notbeen determined. Collection of multiple specimens or types ofspecimens may be necessary to detect virus. Improper specimencollection and handling, sequence variability under primers/probes,or organism present below the limit of detection may lead to falsenegative results. Positive and negative predictive values oftesting are highly dependent on prevalence. False negative testresults are more likely when prevalence is high. SOURCE (test code = 28232) NOT SPECIFIED Note: Methodolog y is Ilana Reagan Real-Time RT-PCR. The expected result or reference range is NEGATIVE (Not Detected). For more information regarding COVID-19 testing to include clinicalinformation, methodology detail, intended use, FDA authorization andrecommended fact sheets for patients or healthcare providers, see Masabi Announcement: SARS-CoV-2 (COVID-19) by NAAT at URL below (note,fact sheets are provided by method given in report:[email or web address] [email or web address]/clinicians/clie nt-communications/ Alternatively, see downloadable PDF fact sheet at:https://www.[employer] Anexon/MHNPQ-58-AY-PCR UNLESS OTHERWISE INDICATED, ALL TESTING PERFORMED [facility], [facility]. [address] [place] [id number] MANAGER RECRUITING: IVY FORDE M.D. [place] NUMBER [id number] [facility] [place] [id number] Notes Date/Time Note Provider Source 2023-12-29 04:12:49 Pt given printed and verbal discharge instructions regarding bleeding post tooth extraction. Pt verbalized understanding of instructions, pt awake alert oriented, resp reg unlabored, skin w/d, color appropriate for race, moves all ext well,pt encouraged to follow up with dentist. Advised to seek medical attention for new/prolonged/worsening of symptoms. No adverse reaction to meds given in ER noted upon discharge. Awake, alert oriented, resp reg unlabored, skin w/d, pt leaving amb with steady gait, in no apparent distress. Yañez RN [facility] 2023-12-28 23:44:31 Pt had tooth removed today and has been bleeding since he got home [employer] JUDGE [facility]
[2024-05-08] MEDS ORDERED: BENZONATATE 100 MG CAP PO ONE (10:24)
[2024-05-08 11:09] LABS: Influenza A Ag Negative; Influenza B Ag Negative; SARS-CoV-2 Antigen Rapid Res Negative (Negative)
--- NOTE | 2024-05-08 11:31 | RAD REPORT ---
Procedure: Chest Single View HISTORY: Cough COMPARISON: 2019 FINDINGS: The lungs appear clear of acute infiltrate. No significant pleural effusion noted. The heart is normal size. IMPRESSION: No acute abnormality is displayed.
--- NOTE | 2024-05-08 11:49 | ER ---
Nurse's Notes [facility] Name: Red Zuluaga III Age: 24 yrs Sex: Male : 2000 Arrival Date: 05/08/2024 Time: 09:44 Bed 10 Private MD: Diagnosis: Cough Presentation: 05/08 10:01 Chief complaint: Patient states: cough X 1 month, now having pain i his chest and iw phlegm, has been taking amoxicillin from [place]. Coronavirus screen: Client presents with at least one sign or symptom that may indicate coronavirus-19. Ebola Screen: No symptoms or risks identified at this time. Initial Sepsis Screen: Does the patient meet any 2 criteria? Does the patient have a suspected source of infection? No. Patient's initial sepsis screen is negative. Risk Assessment: Do you want to hurt yourself or someone else? Patient reports no desire to harm self or others. 10:01 Method Of Arrival: Ambulatory iw 10:01 Acuity: JORI 4 iw Triage Assessment: 12:13 General: Appears in no apparent distress. Behavior is calm, cooperative. Pain: iw Complains of pain in chest. Historical: - Allergies: 10:03 No Known Allergies; iw - Home Meds: 10:03 None [Active]; iw - PMHx: 10:03 None; iw - PSHx: 10:03 None; iw - Immunization history:: Adult Immunizations. - Infectious Disease History:: Denies. - Social history:: Smoking status: Patient/guardian denies using tobacco. Screenin:13 [facility] ED Fall Risk Assessment (Adult) History of falling in the last 3 months, iw including since admission No falls in past 3 months (0 pts) Confusion or Disorientation No (0 pts) Intoxicated or Sedated No (0 pts) Impaired Gait No (0 pts) Mobility Assist Device Used No (0 pt) Altered Elimination No (0 pt) Score/Fall Risk Level 0 - 2 = Low Risk Oriented to surroundings, Maintained a safe environment. Abuse screen: Denies threats or abuse. Nutritional screening: No deficits noted. Tuberculosis screening: No symptoms or risk factors identified. Assessment: 10:27 Reassessment: Patient is alert, oriented x 3, equal unlabored respirations, skin aa5 warm/dry/pink. Vital Signs: 10:04 BP 122 / 88; Pulse 60; Resp 16; Temp 98.1; Pulse Ox 99% on R/A; Weight 79.38 kg; Height iw 5 ft. 6 in. ; 10:04 Body Mass Index 28.25 (79.38 kg, 167.64 cm) iw ED Course: 09:49 Patient arrived in ED. ec2 09:50 George Crews MD is Attending Physician. ec2 10:03 Triage completed. iw 10:04 Arm band placed on. iw 10:10 Tiffany Yañez, MARGOTH is Primary Nurse. iw 10:27 COVID swab sent to lab. Flu and/or RSV swab sent to lab. aa5 11:03 CXR XRAY In Process Unspecified. EDMS 12:13 No provider procedures requiring assistance completed. Patient did not have IV access iw during this emergency room visit. Administered Medications: 10:27 Drug: Tessalon Perle PO 200 mg PO once Route: PO; aa5 11:00 Follow up: Response: No adverse reaction iw Medication: 12:13 VIS not applicable for this client. iw Outcome: 11:48 Discharge ordered by . ec2 12:13 Discharged to home ambulatory, iw 12:13 Condition: good 12:13 Discharge instructions given to patient, Instructed on discharge instructions, follow up and referral plans. medication usage, Demonstrated understanding of instructions, follow-up care, medications, Prescriptions given X 2, 12:13 Patient left the ED. iw Signatures: Dispatcher [employer] Tiffany Baker RN RN Elise Allen RN RN aa George Crews MD MD ec2
--- NOTE | 2024-05-08 11:49 | EDPHYS ---
Physician Documentation [facility] Name: Red Zuluaga III Age: 24 yrs Sex: Male : 2000 Arrival Date: 05/08/2024 Time: 09:44 Bed 10 Private MD: ED Physician George Crews HPI: 05/08 10:21 This 24 yrs old Male presents to ER via Ambulatory with complaints of Cough. ec2 10:21 Patient arrives today for cough ongoing for 1 month. Patient reports that he works with [employer]. Patient reports no fevers or chills, no nausea or vomiting. Reports a frequent cough that is worse in the morning.. Historical: - Allergies: 10:03 No Known Allergies; iw - Home Meds: 10:03 None [Active]; iw - PMHx: 10:03 None; iw - PSHx: 10:03 None; iw - Immunization history:: Adult Immunizations. - Infectious Disease History:: Denies. - Social history:: Smoking status: Patient/guardian denies using tobacco. ROS: 10:21 Constitutional: as per hpi ec2 Exam: 10:21 Constitutional: GEN: NAD Head: atraumatic Eyes: EOMI Ears: External ears are ec2 normal. CV: regular rate LUNGS: no respiratory distress, no wheezes or rales or rhonchi ABD: non-distended SKIN: no evidence of rashes MSK: no evidence of trauma Vital Signs: 10:04 BP 122 / 88; Pulse 60; Resp 16; Temp 98.1; Pulse Ox 99% on R/A; Weight 79.38 kg; Height iw 5 ft. 6 in. ; 10:04 Body Mass Index 28.25 (79.38 kg, 167.64 cm) MDM: 10:07 Medical Screening Exam initiated ec2 10:23 Data reviewed: vital signs, nurses notes. ED course: Patient arrives today for ec2 evaluation of frequent cough. Examination yields cardiopulmonary findings as above, reassuring examination. Will obtain chest x-ray and viral swab. Given the duration of symptoms, will start the patient on steroids and antibiotics. Patient also may have inhalational issue given his work.. 05/08 10:07 Order name: COVID-19 Ag + Flu A+B Ag; Complete Time: 11:15 ec2 05/08 10:07 Order name: CXR XRAY; Complete Time: 11:39 ec2 Administered Medications: 10:27 Drug: Tessalon Perle PO 200 mg PO once Route: PO; aa5 11:00 Follow up: Response: No adverse reaction iw Disposition Summary: 05/08/24 11:48 Discharge Ordered Notes: Location: Home ec2 Condition: Stable ec2 Diagnosis - Cough ec2 Followup: ec2 - With: Private Physician - When: - Reason: Re-evaluation by your physician Discharge Instructions: - Discharge Summary Sheet ec2 - Cough, Adult ec2 Forms: - Work release form ec2 - Medication Reconciliation Form ec2 - Antibiotic Education ec2 - Prescription Opioid Use ec2 - Patient Portal Instructions ec2 - Leadership Thank You Letter ec2 Prescriptions: - Zithromax Z-Hunter 250 mg Oral Tablet - take 1 tablet ORAL route as directed for 5 days Day 1 - take two (2) tablets ec2 one time. Day 2, 3, 4 , 5 take one (1) tablet once daily.; 6 tablet; Refills: 0, Product Selection Permitted - Prednisone 20 mg Oral Tablet - take 2 tablets ORAL route once daily for 5 days; 10 tablet; Refills: 0, Product ec2 Selection Permitted Signatures: Dispatcher [employer] Tiffany Baker RN RN iw Elise Allen RN RN aa5 George Crews MD MD ec2
[2024-05-08 12:18] VITALS: BP 122/88; TEMP 98.1; O2SAT 99
== END 2024-05-08 12:13 | disposition home or self-care (01) ==
LOC: ER 09:44
DX: R05.9 Cough, unspecified (principal); Z11.52 Encounter for screening for COVID-19
CPT/HCPCS: 36415; 71045; 87428; 99283